=== PATIENT | female | born 1945 | race Caucasian/White ===

== ENCOUNTER 2017-09-12 18:41 | Emergency (ER) | payer MEDICARE, OTHER ==
[~2017-09-12] VITALS: Ht 162.6 cm; Wt 53.0 kg
[2017-09-12 18:47] VITALS: BP 101/68; PULSE 78; RESP 18; TEMP 98.1; O2SAT 97
[2017-09-12 19:17] VITALS: BP 118/72; PULSE 73; RESP 18; O2SAT 96
[2017-09-12] MEDS ORDERED: SYNT25TA PO (19:23)
--- NOTE | 2017-09-12 19:24 | PD ---
HPI Chief Complaint: Respiratory Symptoms Time Seen by Provider: 19:23 Travel History International Travel<30 days: No Contact w/Intl Traveler<30days: No Traveled to known affect area: No History of Present Illness HPI 72-year-old female came to the emergency room with history cough and shortness of breath approximately 2 hours ago she was drinking some water and talking. Patient thinks that during the process of talking and laughing she may have aspirated the water because it started soon afterwards. She has history of asthma and patient was unable to catch her breath and hence decided to come to the emergency room. She says currently she feels better. She ran out of her inhaler. Her last ER visit because of asthma was many years ago she says. No history of chest pain. [facility] Past Medical History Narrative Medical List of her past medical, surgical, social and family history is reviewed from the nursing note. Arthritis: Yes Asthma: Yes Atrial Fibrillation: Yes Heart Rhythm Problems: Yes Cardiovascular Problems: Yes COPD: Yes Diminished Hearing: No Fibromyalgia: Yes Gastrointestinal Disorders: Yes GERD: Yes Musculoskeletal: Yes Respiratory: Yes Thyroid Disease: Yes Tetanus Vaccination: Unknown Influenza Vaccination: Yes ?: Not Menopausal: Yes Past Surgical History Appendectomy: Yes Gynecologic Surgery: Yes Hysterectomy: Yes Tonsillectomy: Yes Social History Alcohol Use: Yes (2 drinks daily) Tobacco Use: No Substance Use: No Allergies-Medications (Allergen,Severity, Reaction): Coded Allergies: Penicillins (Verified Allergy, Severe, Anaphylaxis, 09/12/17) Sulfa (Sulfonamide Antibiotics) (Verified Allergy, Intermediate, RASH, ) Comments List of her allergies reviewed from the nursing note. Reported Meds & Prescriptions Reported Meds & Active Scripts Active Reported Gabapentin 100 Mg Cap 100 Mg PO BID Pantoprazole (Pantoprazole Sodium) 20 Mg Tab 20 Mg PO DAILY Mobic (Meloxicam) 7.5 Mg Tab 7.5 Mg PO DAILY Premarin (Estrogens Conjugated) 0.3 Mg Tab 0.3 Mg PO DAILY Diltiazem (Diltiazem HCl) 30 Mg Tab Unknown Dose PO QID Synthroid (Levothyroxine Sodium) 25 Mcg Tab Unknown Dose PO DAILY Narrative Medication List of her home medications reviewed from the nursing note. Review of Systems Except as stated in HPI: all other systems reviewed are Neg Respiratory: Positive: Cough, Shortness of Breath Physical Exam Narrative GENERAL: Awake, alert, mildest SKIN: Focused skin assessment warm/dry. HEAD: Atraumatic. Normocephalic. EYES: Pupils equal and round. No scleral icterus. No injection or drainage. ENT: No nasal bleeding or discharge. Mucous membranes pink and moist. NECK: Trachea midline. No JVD. CARDIOVASCULAR: Regular rate and rhythm. No murmur appreciated. RESPIRATORY: No accessory muscle use. Bilateral end expiratory wheeze GASTROINTESTINAL: Abdomen soft, non-tender, nondistended. Hepatic and splenic margins not palpable. MUSCULOSKELETAL: No obvious deformities. No clubbing. No cyanosis. No edema. NEUROLOGICAL: Awake and alert. No obvious cranial nerve deficits. Motor grossly within normal limits. Normal speech. PSYCHIATRIC: Appropriate mood and affect; insight and judgment normal. Data Data Last Documented VS Vital Signs Date Time Temp Pulse Resp B/P (MAP) Pulse Ox O2 Delivery O2 Flow Rate FiO2 09/12/17 19:44 96 Room Air 09/12/17 19:44 09/12/17 19:17 73 18 09/12/17 18:47 98.1 Orders Orders Ecg Monitoring (09/12/17 19:29) Iv Access Insert/Monitor (09/12/17 19:29) Oximetry (09/12/17 19:29) Oxygen Administration (09/12/17 19:29) Prednisone (Deltasone) (09/12/17 19:30) Albuterol-Ipratropium Neb (Duoneb Neb) (09/12/17 19:30) Sodium Chloride 0.9% Flush (Ns Flush) (09/12/17 19:30) Chest, Single Ap (09/12/17 ) Albuterol Neb (Albuterol Neb) (09/12/17 21:30) Ed Discharge Order (09/12/17 21:21) [facility] Medical Decision Making Medical Screen Exam Complete: Yes Emergency Medical Condition: Yes Medical Record Reviewed: Yes Differential Diagnosis Asthma exacerbation, aspiration Narrative Course 7:35 PM patient is getting nebulizer and p.o. prednisone. I have ordered a chest x-ray. I will reassess her in a bit. 9:23 PM I just reassessed the patient and air entry is better although still some end expiratory wheeze. I will give her 1 more breathing treatment and she will be discharged home after that. I looked at the chest x-ray and did not see any infiltrate. It has not been read yet but I am comfortable discharging the patient home. Procedures EKG Prior to Arrival: No Diagnosis Primary Impression: Asthma exacerbation Qualified Codes: J45.41 - Moderate persistent asthma with (acute) exacerbation Additional Impression: Shortness of breath Referrals: Primary Care Physician 3 days Additional Instructions: Use the inhaler 2 puffs every 4-6 hours for next 24 hours and then as needed. Take the medication as per the prescription direction. Return to the ER if condition worsens any other new concerns. Otherwise follow-up with your primary care. Med/Other Pt SpecificInfo: Prescription(s) given Scripts Prednisone (Prednisone) 20 Mg Tab 20 MG PO BID for 5 Days, #10 TAB 0 Refills Prov: Dina Fernandez MD 09/12/17 Albuterol 18 GM Inh (Ventolin Hfa 18 GM Inh) 90 Mcg/Act Aer 2 PUFF INH Q4-6H Y for SHORTNESS OF BREATH, #1 INHALER 0 Refills Prov: Dina Fernandez MD 09/12/17 Disposition: 01 DISCHARGE HOME Condition: Stable Dina Fernandez MD September 12, 2017 19:24
[2017-09-12] MEDS ORDERED: GABA100C4 PO (19:26)
[2017-09-12] MEDS ORDERED: ESTR.3 PO (19:26)
[2017-09-12] MEDS ORDERED: MOBI7.5T PO (19:26)
[2017-09-12] MEDS ORDERED: DILT30TA PO (19:26)
[2017-09-12] MEDS ORDERED: PANT20TA2 PO (19:26)
[2017-09-12] MEDS ORDERED: SODIUM CHLORIDE 0.9% FLUSH 10 ML FLUSH IVF PRN (19:30)
[2017-09-12] MEDS ORDERED: predniSONE 20 MG TAB PO ONE (19:30)
[2017-09-12] MEDS: RESP: ALBUTEROL 2.5 MG/IPRATROPIUM 0.5 MG NEB (SCH) INH (19:39)
[2017-09-12 19:44] VITALS: O2SAT 96
[2017-09-12] MEDS ORDERED: VENTAER INH (21:25)
[2017-09-12] MEDS ORDERED: PRED20 PO (21:25)
[2017-09-12] MEDS ORDERED: RESP: ALBUTEROL 2.5 MG/3 ML NEB (SCH) NEB ONE (21:30)
--- NOTE | 2017-09-12 21:30 | RADRPT ---
EXAM DATE/TIME: 09/12/2017 20:08 [place] COMPARISON: No previous studies available for comparison. INDICATIONS : Shortness of breath. MEDICAL HISTORY : Asthma SURGICAL HISTORY : None. ENCOUNTER: Initial ACUITY: 1 day PAIN SCORE: 0/10 LOCATION: Bilateral chest FINDINGS: A single view of the chest demonstrates the lungs to be symmetrically aerated without evidence of mas s, infiltrate or effusion. The cardiomediastinal contours are unremarkable. Osseous structures are intact. CONCLUSION: No acute disease. Bobby Bro MD on September 12, 2017 at 21:28 Board Certified Radiologist. This report was verified electronically.
[2017-09-12 21:33] VITALS: BP 120/72; PULSE 76; RESP 18; O2SAT 97
== END 2017-09-12 21:41 | disposition home or self-care (01) ==
LOC: PHED 18:41
DX: J44.9 Chronic obstructive pulmonary disease, unspecified (principal); J45.41 Moderate persistent asthma with (acute) exacerbation; M19.90 Unspecified osteoarthritis, unspecified site; I48.91 Unspecified atrial fibrillation; M79.7 Fibromyalgia; K21.9 Gastro-esophageal reflux disease without esophagitis; E07.9 Disorder of thyroid, unspecified
CPT/HCPCS: 71045; 94640; 94664; 99283; J7512; J7613